=== PATIENT | male | born 1990 | race Caucasian/White ===

== ENCOUNTER 2020-01-08 15:13 | Emergency (ER) | payer OTHER, SELFPAY ==
[~2020-01-08] VITALS: Ht 170.2 cm; Wt 131.5 kg
[2020-01-08 15:16] VITALS: Ht 170.2 cm; Wt 131.5 kg
[2020-01-08 16:35] VITALS: BP 107/63
== END 2020-01-08 16:35 | disposition home or self-care (01) ==
LOC: ED 15:13
DX: U07.1 COVID-19 (principal); B34.9 Viral infection, unspecified
CPT/HCPCS: U0003-CS